=== PATIENT | female | born 1950 | race Two or more races ===

== ENCOUNTER 2018-12-24 05:40 | Day surgery (SDC) | payer OTHER ==
[~2018-12-24 05:40] MED LIST: AVAPRO75 MG PO; TIROSINT25 MCG PO; VIT D PO; ZOCOR20 MG PO
== END 2018-12-24 12:50 | disposition home or self-care (01) ==
LOC: CIR.AMB 05:40
DX: M24.532 Contracture, left wrist (principal); M65.832 Other synovitis and tenosynovitis, left forearm